=== PATIENT | male | born 1950 | race Caucasian/White ===

== ENCOUNTER 2017-07-04 12:19 | Inpatient (IN) | payer OTHER ==
[~2017-07-04] VITALS: Ht 170.2 cm; Wt 90.5 kg
[2017-07-04] VITALS (16 sets, daily range): BP systolic 90–138; BP diastolic 59–86
[~2017-07-04 12:19] MED LIST: APIX2.5T PO; ASPI-1265 PO; ATOR10TA87 PO; CALC0.253 PO; DILT120C51 PO; LABE100T PO; LIDOcaine 2% (20 mg/ml) 5ml cardiac syringe ONE; MAGNESIUM SULFATE 4 MEQ/ML (1gm/2ml) injection ONE; SEVE800T8 PO; SODI650T29 PO; albumin (human) 25% 100 ML IV solution IV ONE; aminocaproic acid 250 MG/1 ML inj. ONE; calcium chloride 100 MG/1 ML inj IV ONE; heparin 1,000 units/ml 10ml inj ONE; heparin 10,000 units/1 ML INJ ONE; papaverine 30 mg/ml 2ml inj. ONE; phenylephrine 10mg/ml inj IV ONE; potassium Cl 2 mEq/ml inj IV ONE; sodium bicarbonate (8.4%) 1 mEq/ml syringe ONE
[2017-07-04] MEDS ORDERED: MESSAGE TO NURSING PO ONE ×4 (13:20)
[2017-07-04] MEDS: insulin regular, human inj. 100 UNITS in normal saline 100ml IV soln 100 ML IV SCH ×2 (13:20)
[2017-07-04] MEDS ORDERED: vancomycin/NS 1 GM ADD-VANTAGE 250 ML IV ONE (13:20)
[2017-07-04] MEDS ORDERED: dextrose 50%-water 50ml dispensing syringe IV PRN ×2 (13:20→19:40)
[2017-07-04] MEDS ORDERED: cefazolin/dext.iso 2gm/50ml 50 ML IV ONE (13:20)
[2017-07-04] MEDS ORDERED: famotidine/PF 10 mg/ml inj IV ONE (14:10)
[2017-07-04] MEDS ORDERED: LORazepam 2 mg/ml vial IV ONE (14:10)
[2017-07-04 14:12] LABS: HEMATOCRIT 31.9 % (42.0-52.0); HEMOGLOBIN 10.9 g/dl (14.0-17.9); MEAN CORPUSCULAR HEMOGLOBIN 31.3 PG (27.0-31.0); MEAN CORPUSCULAR HGB CONC 34.2 % (33.0-36.5); MEAN CORPUSCULAR VOLUME 91.7 FL (78-98); MEAN PLATELET VOLUME 7.7 FL (7.4-10.4); PLATELET COUNT 207 X10'3 (140-440); RED BLOOD COUNT 3.48 X10'6 (4.70-6.10); RED CELL DISTRIBUTION WIDTH 18.3 % (11.5-14.5); WHITE BLOOD COUNT 15.9 X10'3 (4.5-11.0)
[2017-07-04] MEDS ORDERED: SUFENTANIL CITRATE 50 MCG/ML 2ml ampule IV ONE (14:16)
[2017-07-04] MEDS ORDERED: MIDAZolam 1mg/ml 10ml vial ONE (14:16)
[2017-07-04 14:18] LABS: ALBUMIN 2.6 G/DL (3.4-5.0); ANION GAP 14 (8-16); BLOOD UREA NITROGEN 73 MG/DL (7-18); BUN/CREATININE RATIO 4.4 (5.4-32.0); CALCIUM 8.5 MG/DL (8.5-10.1); CHLORIDE 92 MMOL/L (99-107); CREATININE 16.65 MG/DL (0.60-1.10); GLUCOSE 143 MG/DL (70-104); POTASSIUM 5.2 MMOL/L (3.5-5.1); SODIUM 133 MMOL/L (135-145); eGFR 3 ML/MIN
[2017-07-04 14:19] LABS: PARTIAL THROMBOPLASTIN TIME 32 SECONDS (22-32); PROTHROMBIN TIME 10.5 SECONDS (9.0-12.0)
[2017-07-04] MEDS ORDERED: LIDOcaine 2% (20mg/ml) 5ml vial ONE (14:23)
[2017-07-04] MEDS ORDERED: 0.9 % SODIUM CHLORIDE 10 ML VIAL ONE ×2 (14:23)
[2017-07-04] MEDS ORDERED: phenylephrine 10mg/ml inj IV ONE (14:23)
[2017-07-04] MEDS ORDERED: ePHEDrine 50MG/ML INJ. ONE (14:23)
[2017-07-04] MEDS ORDERED: etomidate 2mg/ml inj. ONE (14:23)
[2017-07-04] MEDS ORDERED: rocuronium 10mg/ml inj IV ONE ×3 (14:24→16:32)
[2017-07-04 14:25] LABS: HEMOGLOBIN A1C 5.8 % (4.5-6.2)
[2017-07-04] MEDS ORDERED: protamine sulf. 10mg/ml inj. IV ONE (15:00)
[2017-07-04] MEDS ORDERED: isoflurane 100ml inhalation liquid IH ONE (15:00)
[2017-07-04 15:01] LABS: ABG BASE EXCESS -2.3 mmol/L (-2.0-3.0); ABG HCO3 21.6 mmol/L (22.0-26.0); ABG OXYGEN SATURATION 91.4 % (95-98); ABG PCO2 (T) 34.1 mmHg (35.0-48.0); ABG PO2 (T) 64.5 mmHg (83-108); ALLEN'S TEST Positive; FCOHb 0.1 % (0.5-1.5); FMetHb 0.3 % (0.3-1.12)
[2017-07-04 16:26] LABS: ABG BASE EXCESS -4.1 mmol/L (-2.0-3.0); ABG OXYGEN SATURATION 99.6 % (95-98); ABG PCO2 32.8 mmHg (35.0-45.0); ABG PH 7.402 (7.350-7.450); ABG PO2 312.4 mmHg (60.0-100.0); CL (ABG) 95 mmol/L (99-107); FCOHb 0.6 % (0.5-1.5); FMetHb 0.1 % (0.3-1.12); FO2Hb 98.9 % (94-100); GLUCOSE (ABG) 130 mg/dl (70-105); IONIZED CA (ABG) 1.01 mmol/L (1.03-1.32); K (ABG) 4.8 mmol/L (3.3-5.1); NA (ABG) 130 mmol/L (135-145); TOTAL HEMOGLOBIN 10.8 G/dl (14.0-18.0)
[2017-07-04] MEDS ORDERED: metoprolol tartrate 1mg/ml inj IV ONE (16:30)
[2017-07-04] MEDS ORDERED: heparin 10,000 units/1 ML INJ IR ONE (16:53)
[2017-07-04] MEDS ORDERED: papaverine 30 mg/ml 2ml inj. IA ONE (16:55)
[2017-07-04] MEDS ORDERED: esmolol inj. 10 ML IV ONE (17:20)
[2017-07-04] MEDS ORDERED: midazolam 2 mg/2 ml injection IV PRN (17:25)
[2017-07-04] MEDS ORDERED: fentaNYL/PF 50MCG/1 ML 2ML syringe IV PRN (17:25)
[2017-07-04 17:31] LABS: ABG BASE EXCESS -3.3 mmol/L (-2.0-3.0); ABG HCO3 20.3 mmol/L (22.0-26.0); ABG OXYGEN SATURATION 99.6 % (95-98); ABG PCO2 30.2 mmHg (35.0-45.0); ABG PH 7.445 (7.350-7.450); ABG PO2 532.6 mmHg (60.0-100.0); CL (ABG) 93 mmol/L (99-107); FCOHb 0.7 % (0.5-1.5); FMetHb 0.4 % (0.3-1.12); FO2Hb 98.5 % (94-100); GLUCOSE (ABG) 126 mg/dl (70-105); IONIZED CA (ABG) 0.92 mmol/L (1.03-1.32); K (ABG) 6.1 mmol/L (3.3-5.1); NA (ABG) 125 mmol/L (135-145); TOTAL HEMOGLOBIN 7.9 G/dl (14.0-18.0)
[2017-07-04 17:55] LABS: ABG BASE EXCESS VENOUS -1.8 mmol/L; ABG HCO3 VENOUS 22.5 mmol/L; ABG PCO2 VENOUS 35.7 mmHg; ABG PO2 VENOUS 45.9 mmHg; CL (ABG) 96 mmol/L (99-107); FCOHb VENOUS 1.1 %; FHHb VENOUS 17.7 %; FMetHb VENOUS 0.4 %; FO2Hb VENOUS 80.8 %; GLUCOSE (ABG) 117 mg/dl (70-105); IONIZED CA (ABG) 0.87 mmol/L (1.03-1.32); K (ABG) 5.9 mmol/L (3.3-5.1); NA (ABG) 128 mmol/L (135-145); TOTAL HEMOGLOBIN 7.6 G/dl (14.0-18.0)
[2017-07-04] MEDS: insulin Lispro (HumaLOG) vial - multi-dose SQ SCH (18:00)
[2017-07-04 18:26] LABS: ABG BASE EXCESS -1.4 mmol/L (-2.0-3.0); ABG HCO3 22.3 mmol/L (22.0-26.0); ABG OXYGEN SATURATION 99.6 % (95-98); ABG PCO2 32.3 mmHg (35.0-45.0); ABG PH 7.456 (7.350-7.450); ABG PO2 390.4 mmHg (60.0-100.0); CL (ABG) 97 mmol/L (99-107); FCOHb 1.1 % (0.5-1.5); FMetHb 0.4 % (0.3-1.12); FO2Hb 98.1 % (94-100); GLUCOSE (ABG) 112 mg/dl (70-105); K (ABG) 5.9 mmol/L (3.3-5.1); NA (ABG) 129 mmol/L (135-145); TOTAL HEMOGLOBIN 7.4 G/dl (14.0-18.0)
[2017-07-04 18:51] LABS: ABG BASE EXCESS -2.4 mmol/L (-2.0-3.0); ABG HCO3 21.2 mmol/L (22.0-26.0); ABG OXYGEN SATURATION 99.6 % (95-98); ABG PCO2 31.1 mmHg (35.0-45.0); ABG PH 7.452 (7.350-7.450); ABG PO2 301.2 mmHg (60.0-100.0); CL (ABG) 100 mmol/L (99-107); FCOHb 1.3 % (0.5-1.5); FMetHb 0.2 % (0.3-1.12); FO2Hb 98.1 % (94-100); GLUCOSE (ABG) 118 mg/dl (70-105); K (ABG) 5.6 mmol/L (3.3-5.1); NA (ABG) 130 mmol/L (135-145); TOTAL HEMOGLOBIN 7.3 G/dl (14.0-18.0)
[2017-07-04 19:12] LABS: HEMOGLOBIN 7.4 g/dl (14.0-17.9); MEAN CORPUSCULAR HEMOGLOBIN 30.9 PG (27.0-31.0); MEAN CORPUSCULAR HGB CONC 33.4 % (33.0-36.5); MEAN CORPUSCULAR VOLUME 92.5 FL (78-98); MEAN PLATELET VOLUME 7.5 FL (7.4-10.4); PLATELET COUNT 126 X10'3 (140-440); RED BLOOD COUNT 2.38 X10'6 (4.70-6.10); RED CELL DISTRIBUTION WIDTH 17.7 % (11.5-14.5); WHITE BLOOD COUNT 20.8 X10'3 (4.5-11.0)
[2017-07-04 19:27] LABS: INR 1.2 INR; PARTIAL THROMBOPLASTIN TIME 28 SECONDS (22-32); PROTHROMBIN TIME 12.5 SECONDS (9.0-12.0)
[2017-07-04] MEDS ORDERED: DOPamine 400mg/D5W 250ml 250 ML IV PRN (19:37)
[2017-07-04] MEDS ORDERED: nitroGLYCERIN-Tridil 50MG/D5W 250 ML IV PRN (19:37)
[2017-07-04] MEDS ORDERED: niCARDipine/sod cl 20mg/200ml 200 ML IV PRN (19:37)
[2017-07-04] MEDS ORDERED: insulin regular, human inj. 100 UNITS in normal saline 100ml IV soln 100 ML IV SCH ×2 (19:40)
[2017-07-04] MEDS ORDERED: normal saline 250ml IV soln 250 ML IV PRN (19:40)
[2017-07-04] MEDS ORDERED: potassium Cl 20mEq/100mL bag 100 ML IV PRN ×3 (19:40)
[2017-07-04] MEDS ORDERED: magnesium 4gm in 100ml NS 100 ML IV PRN (19:40)
[2017-07-04] MEDS ORDERED: morphine 2 MG/ML inj. syringe IV PRN (19:40)
[2017-07-04] MEDS ORDERED: magnesium hydroxide 30ml (MOM) UD suspension PO PRN (19:40)
[2017-07-04] MEDS ORDERED: magnesium 2GM in 50ml NS 50 ML IV PRN (19:40)
[2017-07-04] MEDS ORDERED: sodium phosphate inj. 30 MMOL in dextrose 5%-water 250 ML IV PRN (19:40)
[2017-07-04] MEDS ORDERED: sodium phosphate inj. 15 MMOL in dextrose 5%-water 150 ML IV PRN (19:40)
[2017-07-04] MEDS ORDERED: metoclopramide 5 mg/ml inj IV PRN (19:40)
[2017-07-04] MEDS ORDERED: Neutra Phos packet PO PRN (19:40)
[2017-07-04] MEDS: sodium bicarbonate 650mg tablet PO SCH (20:00)
[2017-07-04] MEDS ORDERED: mupirocin 2% ointment 22GM NS SCH (20:00)
[2017-07-04] MEDS: docusate sod 100mg capsule PO SCH (20:00)
[2017-07-04] MEDS: vancomycin/NS 1 GM ADD-VANTAGE 250 ML IV SCH (20:00)
[2017-07-04 20:20] LABS: ABG BASE EXCESS -6.3 mmol/L (-2.0-3.0); ABG HCO3 17.4 mmol/L (22.0-26.0); ABG PCO2 (T) 28.4 mmHg (35.0-48.0); ABG PH (T) 7.404 (7.350-7.450); ABG PO2 (T) 250.9 mmHg (83-108); FCOHb 0.3 % (0.5-1.5); FO2Hb 98.7 % (94-100); MINUTE VOLUME 8 L/min; PATIENT TEMPERATURE 36.5; PEEP 5 cm H2O; RESPIRATORY RATE 12 b/min; RESPIRATORY RATE (OBSERVED) 12 b/min; TIDAL VOLUME 600 mL; TOTAL HEMOGLOBIN 10.8 G/dl (14.0-18.0)
[2017-07-04 20:27] LABS: BASOPHILS % (AUTO) 0 % (0-1); EOSINOPHILS % (AUTO) 0 % (0-6); HEMATOCRIT 31.5 % (42.0-52.0); HEMOGLOBIN 10.4 g/dl (14.0-17.9); LYMPHOCYTES # (AUTO) 0.3 X10'3 (1.1-4.8); LYMPHOCYTES % (AUTO) 1.2 % (21-51); MEAN CORPUSCULAR HEMOGLOBIN 30.9 PG (27.0-31.0); MEAN CORPUSCULAR VOLUME 93.5 FL (78-98); MEAN PLATELET VOLUME 7.8 FL (7.4-10.4); MONOCYTES # (AUTO) 0.9 X10'3 (0-0.9); MONOCYTES % (AUTO) 3.1 % (2-12); NEUTROPHILS # (AUTO) 27.2 X10'3 (1.8-7.7); NEUTROPHILS % (AUTO) 95.7 % (42-75); PLATELET COUNT 132 X10'3 (140-440); RED BLOOD COUNT 3.36 X10'6 (4.70-6.10); RED CELL DISTRIBUTION WIDTH 18.2 % (11.5-14.5)
[2017-07-04 20:46] LABS: WHITE BLOOD COUNT 28.5 X10'3 (4.5-11.0)
[2017-07-04] MEDS: sodium chloride 0.45% 1,000 ML IV SCH (21:02)
[2017-07-04] MEDS: morphine 2 MG/ML inj. syringe IV PRN (21:10)
[2017-07-04] MEDS ORDERED: NORepinephrine 8mg/ 250ml NS 250 ML IV PRN (21:56)
[2017-07-04] MEDS: albumin (Human) 5% 250ml 250 ML IV PRN (22:21)
[2017-07-04] MEDS: mupirocin 2% ointment 22GM NS SCH (22:30)
[2017-07-04 22:35] LABS: INR 1.1 INR; PARTIAL THROMBOPLASTIN TIME 43 SECONDS (22-32); PROTHROMBIN TIME 11.4 SECONDS (9.0-12.0)
[2017-07-04 22:38] LABS: ALANINE AMINOTRANSFERASE 30 U/L (12-78); ALBUMIN 2.2 G/DL (3.4-5.0); ALBUMIN/GLOBULIN RATIO 0.7 (1.1-1.5); ALKALINE PHOSPHATASE 65 IU/L (46-116); ANION GAP 17 (8-16); BILIRUBIN,TOTAL 0.8 MG/DL (0.1-1.0); BLOOD UREA NITROGEN 67 MG/DL (7-18); BUN/CREATININE RATIO 4.6 (5.4-32.0); CHLORIDE 99 MMOL/L (99-107); CREATININE 14.49 MG/DL (0.60-1.10); GLUCOSE 162 MG/DL (70-104); MAGNESIUM 3.4 MG/DL (1.5-2.4); SODIUM 136 MMOL/L (135-145); TOTAL PROTEIN 5.5 G/DL (6.4-8.2); eGFR 3 ML/MIN
[2017-07-04 22:40] LABS: POTASSIUM 5.9 MMOL/L (3.5-5.1)
[2017-07-04 22:54] LABS: PHOSPHORUS 7.2 MG/DL (2.3-4.5)
[2017-07-04 22:55] LABS: ASPARTATE AMINO TRANSFERASE 209 U/L (10-37)
[2017-07-04 23:17] LABS: ANISOCYTOSIS 2+; PLATELET ESTIMATE DECREASED; TOTAL CELLS COUNTED 100
[2017-07-05] VITALS (24 sets, daily range): BP systolic 82–136; BP diastolic 56–82
[2017-07-05] MEDS: cefazolin 1gm/NS 100mL 100 ML IV SCH ×4 (00:24→21:07)
[2017-07-05] MEDS: albumin (Human) 5% 250ml 250 ML IV PRN (00:25)
[2017-07-05 03:05] LABS: ABG HCO3 18.3 mmol/L (22.0-26.0); ABG OXYGEN SATURATION 96.3 % (95-98); ABG PCO2 (T) 39.9 mmHg (35.0-48.0); ABG PH (T) 7.277 (7.350-7.450); ABG PO2 (T) 102.7 mmHg (83-108); FCOHb 0.3 % (0.5-1.5); FMetHb 0.3 % (0.3-1.12); FO2Hb 95.7 % (94-100); MINUTE VOLUME 7 L/min; PATIENT TEMPERATURE 36.7; PEEP 5 cm H2O; RESPIRATORY RATE (OBSERVED) 14 b/min; TOTAL HEMOGLOBIN 9.9 G/dl (14.0-18.0)
[2017-07-05 03:39] LABS: BASOPHILS % (AUTO) 0 % (0-1); EOSINOPHILS # (AUTO) 0.4 X10'3 (0-0.9); HEMATOCRIT 27.3 % (42.0-52.0); HEMOGLOBIN 9.2 g/dl (14.0-17.9); LYMPHOCYTES # (AUTO) 0.3 X10'3 (1.1-4.8); LYMPHOCYTES % (AUTO) 1.3 % (21-51); MEAN CORPUSCULAR HGB CONC 33.6 % (33.0-36.5); MEAN CORPUSCULAR VOLUME 92.3 FL (78-98); MEAN PLATELET VOLUME 8.1 FL (7.4-10.4); MONOCYTES # (AUTO) 0.3 X10'3 (0-0.9); MONOCYTES % (AUTO) 1.3 % (2-12); NEUTROPHILS # (AUTO) 19.1 X10'3 (1.8-7.7); NEUTROPHILS % (AUTO) 95.4 % (42-75); PLATELET COUNT 145 X10'3 (140-440); RED BLOOD COUNT 2.95 X10'6 (4.70-6.10)
[2017-07-05 03:51] LABS: INR 1.1 INR; PARTIAL THROMBOPLASTIN TIME 28 SECONDS (22-32); PROTHROMBIN TIME 10.9 SECONDS (9.0-12.0)
[2017-07-05 03:55] LABS: ALANINE AMINOTRANSFERASE 23 U/L (12-78); ALBUMIN 2.8 G/DL (3.4-5.0); ALKALINE PHOSPHATASE 55 IU/L (46-116); ANION GAP 21 (8-16); ASPARTATE AMINO TRANSFERASE 167 U/L (10-37); BILIRUBIN,TOTAL 0.6 MG/DL (0.1-1.0); BLOOD UREA NITROGEN 73 MG/DL (7-18); BUN/CREATININE RATIO 4.7 (5.4-32.0); CALCIUM 8.1 MG/DL (8.5-10.1); CHLORIDE 98 MMOL/L (99-107); CREATININE 15.39 MG/DL (0.60-1.10); GLUCOSE 178 MG/DL (70-104); MAGNESIUM 3.5 MG/DL (1.5-2.4); PHOSPHORUS 8.4 MG/DL (2.3-4.5); SODIUM 138 MMOL/L (135-145); TOTAL CARBON DIOXIDE 19.5 MMOL/L (24-32); TOTAL PROTEIN 5.6 G/DL (6.4-8.2); eGFR 3 ML/MIN
[2017-07-05] MEDS ORDERED: insulin regular, human 10 units/0.1 ml syringe IV ONE (05:25)
[2017-07-05] MEDS ORDERED: dextrose 50%-water 50ml dispensing syringe IV ONE (05:25)
[2017-07-05] MEDS: morphine 2 MG/ML inj. syringe IV PRN ×2 (05:45→19:21)
[2017-07-05 07:10] LABS: ABG BASE EXCESS -9.7 mmol/L (-2.0-3.0); ABG HCO3 15.5 mmol/L (22.0-26.0); ABG OXYGEN SATURATION 96.7 % (95-98); ABG PCO2 (T) 30.9 mmHg (35.0-48.0); ABG PH (T) 7.317 (7.350-7.450); ABG PO2 (T) 107.2 mmHg (83-108); FCOHb 0.3 % (0.5-1.5); FMetHb 0.3 % (0.3-1.12); FO2Hb 96.1 % (94-100); MINUTE VOLUME 9 L/min; PATIENT TEMPERATURE 36.9; PEEP 5 cm H2O; TOTAL HEMOGLOBIN 9.2 G/dl (14.0-18.0)
[2017-07-05] MEDS ORDERED: normal saline 1000ml 100 ML IV PRN (07:14)
[2017-07-05] MEDS ORDERED: normal saline 1000ml 250 ML IV PRN (07:14)
[2017-07-05] MEDS ORDERED: albumin (human) 25% 100ml IV 100 ML IV PRN (07:15)
[2017-07-05] MEDS ORDERED: heparin 1,000 units/ml 10ml inj HE ONE ×2 (07:20)
[2017-07-05] MEDS: insulin regular, human inj. 100 UNITS in normal saline 100ml IV soln 100 ML IV SCH ×6 (07:32→14:05)
[2017-07-05] MEDS: sevelamer carbonate 800mg tablet PO SCH ×3 (08:00→19:54)
[2017-07-05] MEDS: metoprolol tartrate 12.5mg (1/2 tablet) PO SCH ×2 (08:00→20:15)
[2017-07-05] MEDS ORDERED: insulin Lispro (HumaLOG) vial - multi-dose SQ SCH ×2 (09:00→19:50)
[2017-07-05] MEDS: insulin Lispro (HumaLOG) vial - multi-dose SQ SCH ×3 (09:00→18:00)
[2017-07-05] MEDS ORDERED: hydrocortisone sod succ/PF 100mg/2ml inj. IV ONE (09:05)
[2017-07-05] MEDS: vancomycin/NS 1 GM ADD-VANTAGE 250 ML IV SCH ×2 (09:20→21:18)
[2017-07-05] MEDS: aspirin 325mg tablet, delayed-release (Ecotrin) PO SCH (09:20)
[2017-07-05] MEDS: docusate sod 100mg capsule PO SCH ×2 (09:20→20:15)
[2017-07-05] MEDS: mupirocin 2% ointment 22GM NS SCH ×2 (09:21→20:15)
[2017-07-05] MEDS: atorvastatin 10mg tablet PO SCH (09:21)
[2017-07-05] MEDS: sodium bicarbonate 650mg tablet PO SCH ×2 (09:21→20:30)
[2017-07-05] MEDS: calcitriol 0.25mcg capsule PO SCH (09:21)
[2017-07-05] MEDS: pantoprazole 40mg Tablet.DR PO SCH (09:23)
[2017-07-05] MEDS ORDERED: MESSAGE TO NURSING PO ONE (10:00)
[2017-07-05] MEDS: sodium chloride 0.45% 1,000 ML IV SCH (15:24)
[2017-07-05] MEDS ORDERED: amiodarone 150mg/dext, iso-os 100 ML IV ONE ×2 (17:20→17:24)
[2017-07-05] MEDS ORDERED: amiodarone/D5 360MG/200ML BAG 200 ML IV ONE (17:25)
[2017-07-05] MEDS ORDERED: glucagon, human recombinant 1mg kit SUBCUT PRN (19:50)
[2017-07-05] MEDS: mineral oil/petrolatum ophthal oint EACHEYE SCH (20:00)
[2017-07-05] MEDS: HYDROcodone/acetaminophen 10/325mg tab PO PRN (22:43)
[2017-07-05] MEDS: insulin glargine (Lantus) pen - multi-dose SQ SCH (22:46)
[2017-07-05] MEDS: ondansetron/PF 4mg/2ml inj IV PRN (23:13)
[2017-07-05] MEDS: amiodarone/D5 360MG/200ML BAG 200 ML IV SCH (23:36)
[2017-07-06] VITALS (25 sets, daily range): BP systolic 93–144; BP diastolic 62–86
[2017-07-06] MEDS: sevelamer carbonate 800mg tablet PO SCH
[2017-07-06] MEDS: cefazolin 1gm/NS 100mL 100 ML IV SCH ×2 (00:32→08:27)
[2017-07-06] MEDS: mineral oil/petrolatum ophthal oint EACHEYE SCH ×4 (02:00→20:00)
[2017-07-06 03:36] LABS: BASOPHILS % (AUTO) 0 % (0-1); EOSINOPHILS # (AUTO) 0.1 X10'3 (0-0.9); EOSINOPHILS % (AUTO) 0.7 % (0-6); LYMPHOCYTES # (AUTO) 0.5 X10'3 (1.1-4.8); LYMPHOCYTES % (AUTO) 2.7 % (21-51); MEAN CORPUSCULAR VOLUME 93.9 FL (78-98); MONOCYTES # (AUTO) 0.8 X10'3 (0-0.9); MONOCYTES % (AUTO) 4.5 % (2-12); NEUTROPHILS # (AUTO) 16.9 X10'3 (1.8-7.7); NEUTROPHILS % (AUTO) 92.1 % (42-75); PLATELET COUNT 86 X10'3 (140-440); RED BLOOD COUNT 2.14 X10'6 (4.70-6.10); RED CELL DISTRIBUTION WIDTH 18.7 % (11.5-14.5); WHITE BLOOD COUNT 18.3 X10'3 (4.5-11.0)
[2017-07-06 04:03] LABS: ALBUMIN 2.5 G/DL (3.4-5.0); ANION GAP 16 (8-16); BLOOD UREA NITROGEN 53 MG/DL (7-18); BUN/CREATININE RATIO 5.3 (5.4-32.0); CALCIUM 7.3 MG/DL (8.5-10.1); CHLORIDE 98 MMOL/L (99-107); CREATININE 10.06 MG/DL (0.60-1.10); GLUCOSE 151 MG/DL (70-104); MAGNESIUM 2.5 MG/DL (1.5-2.4); PHOSPHORUS 6.6 MG/DL (2.3-4.5); POTASSIUM 5.2 MMOL/L (3.5-5.1); SODIUM 136 MMOL/L (135-145); TOTAL CARBON DIOXIDE 22.2 MMOL/L (24-32); eGFR 5 ML/MIN
[2017-07-06 04:30] LABS: HEMATOCRIT 20.1 % (42.0-52.0); HEMOGLOBIN 6.7 g/dl (14.0-17.9)
[2017-07-06 06:01] LABS: BASOPHILS % (AUTO) 0 % (0-1); EOSINOPHILS # (AUTO) 0.4 X10'3 (0-0.9); EOSINOPHILS % (AUTO) 1.7 % (0-6); HEMOGLOBIN 7.2 g/dl (14.0-17.9); LYMPHOCYTES # (AUTO) 0.4 X10'3 (1.1-4.8); MEAN CORPUSCULAR HEMOGLOBIN 31.3 PG (27.0-31.0); MEAN CORPUSCULAR HGB CONC 33.5 % (33.0-36.5); MEAN CORPUSCULAR VOLUME 93.5 FL (78-98); MEAN PLATELET VOLUME 8.6 FL (7.4-10.4); MONOCYTES # (AUTO) 0.8 X10'3 (0-0.9); MONOCYTES % (AUTO) 3.4 % (2-12); NEUTROPHILS # (AUTO) 20.9 X10'3 (1.8-7.7); NEUTROPHILS % (AUTO) 92.9 % (42-75); PLATELET COUNT 111 X10'3 (140-440); RED BLOOD COUNT 2.29 X10'6 (4.70-6.10); RED CELL DISTRIBUTION WIDTH 18.5 % (11.5-14.5); WHITE BLOOD COUNT 22.5 X10'3 (4.5-11.0)
[2017-07-06 06:13] LABS: HEMATOCRIT 21.4 % (42.0-52.0)
[2017-07-06 07:20] LABS: ANISOCYTOSIS 2+; PLATELET ESTIMATE DECREASED
[2017-07-06 07:21] LABS: ELLIPTOCYTES FEW; POIKILOCYTOSIS FEW; POLYCHROMASIA FEW
[2017-07-06] MEDS: calcitriol 0.25mcg capsule PO SCH (08:00)
[2017-07-06] MEDS: metoprolol tartrate 12.5mg (1/2 tablet) PO SCH ×2 (08:00→20:00)
[2017-07-06] MEDS: amiodarone/D5 360MG/200ML BAG 200 ML IV SCH ×3 (08:25→23:59)
[2017-07-06] MEDS: aspirin 325mg tablet, delayed-release (Ecotrin) PO SCH (08:26)
[2017-07-06] MEDS: docusate sod 100mg capsule PO SCH ×2 (08:26→20:16)
[2017-07-06] MEDS: atorvastatin 10mg tablet PO SCH (08:26)
[2017-07-06] MEDS: pantoprazole 40mg Tablet.DR PO SCH (08:27)
[2017-07-06] MEDS: mupirocin 2% ointment 22GM NS SCH (08:28)
[2017-07-06] MEDS: insulin Lispro (HumaLOG) vial - multi-dose SQ SCH ×3 (08:53→18:55)
[2017-07-06] MEDS: HYDROcodone/acetaminophen 10/325mg tab PO PRN ×3 (10:23→21:09)
[2017-07-06] MEDS: calcium acetate 667mg (PhosLO) capsule PO SCH ×3 (13:00→18:27)
[2017-07-06] MEDS: sodium chloride 0.45% 1,000 ML IV SCH (19:37)
[2017-07-06] MEDS: insulin glargine (Lantus) pen - multi-dose SQ SCH (21:07)
[2017-07-07] VITALS (23 sets, daily range): BP systolic 82–143; BP diastolic 64–90
[2017-07-07] MEDS: HYDROcodone/acetaminophen 10/325mg tab PO PRN ×2 (01:32→13:00)
[2017-07-07 03:14] LABS: BASOPHILS % (AUTO) 0 % (0-1); EOSINOPHILS # (AUTO) 0.4 X10'3 (0-0.9); EOSINOPHILS % (AUTO) 1.9 % (0-6); HEMATOCRIT 22.7 % (42.0-52.0); HEMOGLOBIN 7.7 g/dl (14.0-17.9); LYMPHOCYTES # (AUTO) 0.5 X10'3 (1.1-4.8); LYMPHOCYTES % (AUTO) 2.4 % (21-51); MEAN CORPUSCULAR HEMOGLOBIN 30.9 PG (27.0-31.0); MEAN CORPUSCULAR HGB CONC 33.9 % (33.0-36.5); MEAN CORPUSCULAR VOLUME 91.3 FL (78-98); MEAN PLATELET VOLUME 9.3 FL (7.4-10.4); MONOCYTES # (AUTO) 0.8 X10'3 (0-0.9); MONOCYTES % (AUTO) 3.7 % (2-12); NEUTROPHILS # (AUTO) 20.6 X10'3 (1.8-7.7); PLATELET COUNT 104 X10'3 (140-440); RED BLOOD COUNT 2.48 X10'6 (4.70-6.10); RED CELL DISTRIBUTION WIDTH 19.2 % (11.5-14.5); WHITE BLOOD COUNT 22.4 X10'3 (4.5-11.0)
[2017-07-07 03:36] LABS: ALBUMIN 2.5 G/DL (3.4-5.0); ANION GAP 16 (8-16); BLOOD UREA NITROGEN 79 MG/DL (7-18); BUN/CREATININE RATIO 6.7 (5.4-32.0); CALCIUM 7.8 MG/DL (8.5-10.1); CHLORIDE 93 MMOL/L (99-107); CREATININE 11.76 MG/DL (0.60-1.10); GLUCOSE 156 MG/DL (70-104); MAGNESIUM 2.7 MG/DL (1.5-2.4); PHOSPHORUS 8.9 MG/DL (2.3-4.5); POTASSIUM 5.7 MMOL/L (3.5-5.1); SODIUM 132 MMOL/L (135-145); TOTAL CARBON DIOXIDE 22.7 MMOL/L (24-32); eGFR 4 ML/MIN
[2017-07-07] MEDS: calcium acetate 667mg (PhosLO) capsule PO SCH ×3 (08:00→18:34)
[2017-07-07] MEDS: aspirin 325mg tablet, delayed-release (Ecotrin) PO SCH (08:00)
[2017-07-07] MEDS: metoprolol tartrate 12.5mg (1/2 tablet) PO SCH ×2 (08:00→20:00)
[2017-07-07] MEDS ORDERED: epoetin 20,000 units/ml inj IV ONE (08:00)
[2017-07-07] MEDS ORDERED: heparin 1,000 units/ml 10ml inj HE ONE ×2 (08:00)
[2017-07-07] MEDS ORDERED: heparin 1,000unit/ml 10ml vial 10 ML IV ONE (08:00)
[2017-07-07] MEDS ORDERED: normal saline 1000ml 250 ML IV PRN (08:00)
[2017-07-07] MEDS ORDERED: amiodarone 200mg tablet PO SCH (08:00)
[2017-07-07] MEDS: pantoprazole 40mg Tablet.DR PO SCH (08:01)
[2017-07-07] MEDS: atorvastatin 10mg tablet PO SCH (08:01)
[2017-07-07] MEDS: docusate sod 100mg capsule PO SCH ×2 (08:01→20:20)
[2017-07-07] MEDS: calcitriol 0.25mcg capsule PO SCH (08:05)
[2017-07-07] MEDS: insulin Lispro (HumaLOG) vial - multi-dose SQ SCH ×3 (08:53→19:27)
[2017-07-07 10:21] LABS: ACTIVATED CLOTTING TIME 157 SEC (101-148)
[2017-07-07 10:21] LABS: ACT @ 1.70 U 232 SEC (193-297); ACT @ 2.84 U 320 SEC (260-420); BASELINE ACT 168 SEC (101-148); PATIENT WEIGHT 94.0k KG
[2017-07-07] MEDS: Protein Shake (high protein) 240ml (8oz) cup PO SCH ×2 (13:00→18:34)
[2017-07-07] MEDS ORDERED: potassium Cl 20 mEq SR tablet PO PRN ×2 (13:20)
[2017-07-07] MEDS ORDERED: magnesium Cl slow-release 64mg tablet PO PRN (13:20)
[2017-07-07] MEDS ORDERED: magnesium 4gm in 100ml NS 100 ML IV PRN (13:20)
[2017-07-07] MEDS ORDERED: magnesium 2GM in 50ml NS 50 ML IV PRN (13:20)
[2017-07-07] MEDS ORDERED: potassium Cl 40MEQ/NS 500ml 500 ML IV PRN ×2 (13:20)
[2017-07-07 14:10] LABS: ALANINE AMINOTRANSFERASE 12 U/L (12-78); ALBUMIN 2.6 G/DL (3.4-5.0); ALBUMIN/GLOBULIN RATIO 0.8 (1.1-1.5); ALKALINE PHOSPHATASE 72 IU/L (46-116); ANION GAP 8 (8-16); ASPARTATE AMINO TRANSFERASE 38 U/L (10-37); BILIRUBIN,TOTAL 0.3 MG/DL (0.1-1.0); BLOOD UREA NITROGEN 31 MG/DL (7-18); BUN/CREATININE RATIO 6.5 (5.4-32.0); CALCIUM 7.4 MG/DL (8.5-10.1); CHLORIDE 98 MMOL/L (99-107); CREATININE 4.76 MG/DL (0.60-1.10); GLUCOSE 111 MG/DL (70-104); MAGNESIUM 2.1 MG/DL (1.5-2.4); PHOSPHORUS 3.5 MG/DL (2.3-4.5); POTASSIUM 3.5 MMOL/L (3.5-5.1); SODIUM 136 MMOL/L (135-145); TOTAL CARBON DIOXIDE 29.6 MMOL/L (24-32); TOTAL PROTEIN 5.8 G/DL (6.4-8.2); eGFR 12 ML/MIN
[2017-07-07] MEDS ORDERED: amiodarone 150mg/dext, iso-os 0 ML IV ONE (16:40)
[2017-07-07] MEDS ORDERED: amiodarone/D5 360MG/200ML BAG 200 ML IV ONE (16:40)
[2017-07-07] MEDS: amiodarone/D5 360MG/200ML BAG 200 ML IV SCH ×2 (16:43→22:43)
[2017-07-07] MEDS: potassium Cl 20 mEq SR tablet PO SCH (20:20)
[2017-07-07] MEDS: magnesium Cl slow-release 64mg tablet PO SCH (20:21)
[2017-07-07] MEDS: insulin glargine (Lantus) pen - multi-dose SQ SCH (21:23)
[2017-07-08] VITALS (24 sets, daily range): BP systolic 75–117; BP diastolic 57–82
[2017-07-08] MEDS: amiodarone/D5 360MG/200ML BAG 200 ML IV SCH ×4 (04:06→21:15)
[2017-07-08 06:47] LABS: ALBUMIN 2.3 G/DL (3.4-5.0); ANION GAP 18 (8-16); BLOOD UREA NITROGEN 60 MG/DL (7-18); BUN/CREATININE RATIO 7.1 (5.4-32.0); CALCIUM 7.6 MG/DL (8.5-10.1); CHLORIDE 94 MMOL/L (99-107); GLUCOSE 102 MG/DL (70-104); MAGNESIUM 2.4 MG/DL (1.5-2.4); POTASSIUM 5.3 MMOL/L (3.5-5.1); SODIUM 133 MMOL/L (135-145); TOTAL CARBON DIOXIDE 20.8 MMOL/L (24-32); eGFR 6 ML/MIN
[2017-07-08] MEDS ORDERED: CINA30TA2 (07:11)
[2017-07-08 07:26] LABS: BASOPHILS % (AUTO) 0 % (0-1); EOSINOPHILS # (AUTO) 0.4 X10'3 (0-0.9); EOSINOPHILS % (AUTO) 2.4 % (0-6); HEMATOCRIT 26.3 % (42.0-52.0); HEMOGLOBIN 8.7 g/dl (14.0-17.9); LYMPHOCYTES # (AUTO) 1.4 X10'3 (1.1-4.8); LYMPHOCYTES % (AUTO) 8.2 % (21-51); MEAN CORPUSCULAR HEMOGLOBIN 30.5 PG (27.0-31.0); MEAN CORPUSCULAR VOLUME 92.6 FL (78-98); MEAN PLATELET VOLUME 10.1 FL (7.4-10.4); MONOCYTES # (AUTO) 1.2 X10'3 (0-0.9); MONOCYTES % (AUTO) 7.3 % (2-12); NEUTROPHILS # (AUTO) 13.9 X10'3 (1.8-7.7); NEUTROPHILS % (AUTO) 82.1 % (42-75); PLATELET COUNT 93 X10'3 (140-440); RED BLOOD COUNT 2.84 X10'6 (4.70-6.10); RED CELL DISTRIBUTION WIDTH 18.8 % (11.5-14.5)
[2017-07-08] MEDS: potassium Cl 20 mEq SR tablet PO SCH ×2 (08:00→19:50)
[2017-07-08] MEDS: K and/or MAG REPLACEMENT MC SCH (08:00)
[2017-07-08] MEDS: metoprolol tartrate 12.5mg (1/2 tablet) PO SCH ×2 (08:00→19:50)
[2017-07-08] MEDS: magnesium Cl slow-release 64mg tablet PO SCH ×2 (08:18→19:51)
[2017-07-08] MEDS: calcitriol 0.25mcg capsule PO SCH (08:18)
[2017-07-08] MEDS: aspirin 325mg tablet, delayed-release (Ecotrin) PO SCH (08:18)
[2017-07-08] MEDS: pantoprazole 40mg Tablet.DR PO SCH (08:18)
[2017-07-08] MEDS: docusate sod 100mg capsule PO SCH ×2 (08:19→20:00)
[2017-07-08] MEDS: atorvastatin 10mg tablet PO SCH (08:19)
[2017-07-08] MEDS: calcium acetate 667mg (PhosLO) capsule PO SCH ×3 (08:19→18:04)
[2017-07-08] MEDS: Protein Shake (high protein) 240ml (8oz) cup PO SCH ×3 (08:19→18:04)
[2017-07-08] MEDS: insulin Lispro (HumaLOG) vial - multi-dose SQ SCH ×3 (08:26→18:52)
[2017-07-08] MEDS ORDERED: DEXT IP PRN (16:20)
[2017-07-08] MEDS ORDERED: PERIT DIALYSIS IP PRN (16:20)
[2017-07-08] MEDS: insulin glargine (Lantus) pen - multi-dose SQ SCH (21:00)
[2017-07-09] VITALS (24 sets, daily range): BP systolic 97–154; BP diastolic 58–92
[2017-07-09] MEDS: amiodarone/D5 360MG/200ML BAG 200 ML IV SCH ×2 (02:17→08:02)
[2017-07-09] MEDS: HYDROcodone/acetaminophen 10/325mg tab PO PRN ×2 (05:19→20:28)
[2017-07-09 05:29] LABS: BASOPHILS # (AUTO) 0.1 X10'3 (0-0.2); BASOPHILS % (AUTO) 0.4 % (0-1); EOSINOPHILS # (AUTO) 0.5 X10'3 (0-0.9); EOSINOPHILS % (AUTO) 3.6 % (0-6); HEMATOCRIT 24.8 % (42.0-52.0); HEMOGLOBIN 8.5 g/dl (14.0-17.9); LYMPHOCYTES % (AUTO) 7.4 % (21-51); MEAN CORPUSCULAR HEMOGLOBIN 30.9 PG (27.0-31.0); MEAN CORPUSCULAR HGB CONC 34.3 % (33.0-36.5); MEAN CORPUSCULAR VOLUME 90.2 FL (78-98); MEAN PLATELET VOLUME 9.4 FL (7.4-10.4); MONOCYTES % (AUTO) 6.8 % (2-12); NEUTROPHILS # (AUTO) 11.4 X10'3 (1.8-7.7); NEUTROPHILS % (AUTO) 81.8 % (42-75); PLATELET COUNT 127 X10'3 (140-440); RED BLOOD COUNT 2.75 X10'6 (4.70-6.10); RED CELL DISTRIBUTION WIDTH 18.7 % (11.5-14.5)
[2017-07-09 05:55] LABS: ANION GAP 10 (8-16); BLOOD UREA NITROGEN 71 MG/DL (7-18); BUN/CREATININE RATIO 7.4 (5.4-32.0); CALCIUM 8.4 MG/DL (8.5-10.1); CHLORIDE 94 MMOL/L (99-107); CREATININE 9.55 MG/DL (0.60-1.10); GLUCOSE 118 MG/DL (70-104); MAGNESIUM 2.9 MG/DL (1.5-2.4); SODIUM 130 MMOL/L (135-145); TOTAL CARBON DIOXIDE 26.1 MMOL/L (24-32); eGFR 6 ML/MIN
[2017-07-09] MEDS: K and/or MAG REPLACEMENT MC SCH (06:50)
[2017-07-09] MEDS: pantoprazole 40mg Tablet.DR PO SCH (07:57)
[2017-07-09] MEDS: atorvastatin 10mg tablet PO SCH (07:57)
[2017-07-09] MEDS: aspirin 325mg tablet, delayed-release (Ecotrin) PO SCH (07:57)
[2017-07-09] MEDS: calcium acetate 667mg (PhosLO) capsule PO SCH ×3 (07:57→18:33)
[2017-07-09] MEDS: Protein Shake (high protein) 240ml (8oz) cup PO SCH ×3 (07:57→18:33)
[2017-07-09] MEDS: calcitriol 0.25mcg capsule PO SCH (07:57)
[2017-07-09] MEDS: docusate sod 100mg capsule PO SCH ×2 (07:57→20:29)
[2017-07-09] MEDS: metoprolol tartrate 12.5mg (1/2 tablet) PO SCH ×2 (07:59→20:28)
[2017-07-09] MEDS: magnesium Cl slow-release 64mg tablet PO SCH ×2 (08:00→18:50)
[2017-07-09] MEDS: potassium Cl 20 mEq SR tablet PO SCH ×2 (08:00→18:35)
[2017-07-09] MEDS: ondansetron/PF 4mg/2ml inj IV PRN (08:01)
[2017-07-09] MEDS ORDERED: epoetin 20,000 units/ml inj IV ONE (08:40)
[2017-07-09] MEDS ORDERED: normal saline 1000ml 250 ML IV PRN (08:40)
[2017-07-09] MEDS ORDERED: heparin 1,000 units/ml 10ml inj HE ONE ×2 (08:45)
[2017-07-09] MEDS: insulin Lispro (HumaLOG) vial - multi-dose SQ SCH ×3 (09:00→18:00)
[2017-07-09] MEDS ORDERED: amiodarone 200mg tablet PO ONE (09:30)
[2017-07-09] MEDS ORDERED: PERIT DIALYSIS IP PRN ×2 (11:55→12:14)
[2017-07-09] MEDS ORDERED: perit dialysis 13 & dext 2.5% 6,000 ML IP PRN (11:55)
[2017-07-09] MEDS ORDERED: DEXT IP PRN ×2 (11:55→12:14)
[2017-07-09] MEDS ORDERED: heparin 1,000unit/ml 10ml vial 5,000 UNITS in perit. dialysis 7 & dext 2.5% 6,000 ML IP PRN (12:14)
[2017-07-09] MEDS ORDERED: HEPARIN IP PRN (12:14)
[2017-07-09] MEDS: insulin glargine (Lantus) pen - multi-dose SQ SCH (18:50)
[2017-07-09] MEDS ORDERED: amiodarone 200mg tablet PO SCH (20:00)
[2017-07-10] VITALS (19 sets, daily range): BP systolic 96–144; BP diastolic 55–89
[2017-07-10 05:53] LABS: BASOPHILS % (AUTO) 0 % (0-1); EOSINOPHILS # (AUTO) 0.6 X10'3 (0-0.9); EOSINOPHILS % (AUTO) 4.1 % (0-6); HEMATOCRIT 25.9 % (42.0-52.0); HEMOGLOBIN 8.6 g/dl (14.0-17.9); LYMPHOCYTES # (AUTO) 0.8 X10'3 (1.1-4.8); LYMPHOCYTES % (AUTO) 5.6 % (21-51); MEAN CORPUSCULAR HEMOGLOBIN 30.6 PG (27.0-31.0); MEAN CORPUSCULAR HGB CONC 33.3 % (33.0-36.5); MEAN CORPUSCULAR VOLUME 91.8 FL (78-98); MEAN PLATELET VOLUME 9.1 FL (7.4-10.4); MONOCYTES # (AUTO) 1.1 X10'3 (0-0.9); MONOCYTES % (AUTO) 7.9 % (2-12); NEUTROPHILS # (AUTO) 11.8 X10'3 (1.8-7.7); NEUTROPHILS % (AUTO) 82.4 % (42-75); PLATELET COUNT 176 X10'3 (140-440); RED BLOOD COUNT 2.82 X10'6 (4.70-6.10); RED CELL DISTRIBUTION WIDTH 18.2 % (11.5-14.5); WHITE BLOOD COUNT 14.3 X10'3 (4.5-11.0)
[2017-07-10 06:13] LABS: ALANINE AMINOTRANSFERASE 7 U/L (12-78); ALBUMIN 1.9 G/DL (3.4-5.0); ALBUMIN/GLOBULIN RATIO 0.5 (1.1-1.5); ALKALINE PHOSPHATASE 141 IU/L (46-116); ANION GAP 11 (8-16); ASPARTATE AMINO TRANSFERASE 37 U/L (10-37); BILIRUBIN,TOTAL 0.3 MG/DL (0.1-1.0); BLOOD UREA NITROGEN 74 MG/DL (7-18); BUN/CREATININE RATIO 7.6 (5.4-32.0); CALCIUM 8.6 MG/DL (8.5-10.1); CHLORIDE 93 MMOL/L (99-107); CREATININE 9.72 MG/DL (0.60-1.10); GLUCOSE 131 MG/DL (70-104); PHOSPHORUS 5.7 MG/DL (2.3-4.5); POTASSIUM 5.9 MMOL/L (3.5-5.1); SODIUM 130 MMOL/L (135-145); TOTAL CARBON DIOXIDE 26.1 MMOL/L (24-32); TOTAL PROTEIN 5.5 G/DL (6.4-8.2); eGFR 5 ML/MIN
[2017-07-10 07:43] LABS: MAGNESIUM 2.9 MG/DL (1.5-2.4)
[2017-07-10] MEDS ORDERED: amiodarone 150mg/dext, iso-os 100 ML IV ONE (08:15)
[2017-07-10] MEDS ORDERED: potassium Cl 40MEQ/NS 500ml 500 ML IV PRN ×2 (08:20)
[2017-07-10] MEDS ORDERED: magnesium Cl slow-release 64mg tablet PO PRN (08:20)
[2017-07-10] MEDS ORDERED: magnesium 4gm in 100ml NS 100 ML IV PRN (08:20)
[2017-07-10] MEDS ORDERED: magnesium 2GM in 50ml NS 50 ML IV PRN (08:20)
[2017-07-10] MEDS ORDERED: potassium Cl 20 mEq SR tablet PO PRN ×2 (08:20)
[2017-07-10] MEDS: calcium acetate 667mg (PhosLO) capsule PO SCH ×3 (08:26→18:55)
[2017-07-10] MEDS: calcitriol 0.25mcg capsule PO SCH (08:26)
[2017-07-10] MEDS: metoprolol tartrate 12.5mg (1/2 tablet) PO SCH ×2 (08:27→19:01)
[2017-07-10] MEDS: aspirin 325mg tablet, delayed-release (Ecotrin) PO SCH (08:27)
[2017-07-10] MEDS: pantoprazole 40mg Tablet.DR PO SCH (08:27)
[2017-07-10] MEDS: docusate sod 100mg capsule PO SCH ×2 (08:27→18:55)
[2017-07-10] MEDS: atorvastatin 10mg tablet PO SCH (08:28)
[2017-07-10] MEDS: amiodarone/D5 360MG/200ML BAG 200 ML IV SCH ×3 (09:49→21:58)
[2017-07-10] MEDS ORDERED: HEPARIN IP PRN (11:20)
[2017-07-10] MEDS ORDERED: DEXT IP PRN (11:20)
[2017-07-10] MEDS ORDERED: PERIT DIALYSIS IP PRN (11:20)
[2017-07-10] MEDS ORDERED: amiodarone 200mg tablet PO SCH (17:00)
[2017-07-10] MEDS: HYDROcodone/acetaminophen 10/325mg tab PO PRN (18:56)
[2017-07-11 03:00] VITALS: BP 110/78
[2017-07-11] MEDS: HYDROcodone/acetaminophen 10/325mg tab PO PRN ×3 (04:56→15:26)
[2017-07-11 06:00] VITALS: BP 121/78
[2017-07-11 06:35] LABS: BASOPHILS % (AUTO) 0 % (0-1); EOSINOPHILS # (AUTO) 0.6 X10'3 (0-0.9); EOSINOPHILS % (AUTO) 4.2 % (0-6); HEMATOCRIT 24.7 % (42.0-52.0); HEMOGLOBIN 8.3 g/dl (14.0-17.9); LYMPHOCYTES # (AUTO) 0.7 X10'3 (1.1-4.8); LYMPHOCYTES % (AUTO) 4.4 % (21-51); MEAN CORPUSCULAR HEMOGLOBIN 30.1 PG (27.0-31.0); MEAN CORPUSCULAR HGB CONC 33.5 % (33.0-36.5); MEAN PLATELET VOLUME 9.1 FL (7.4-10.4); MONOCYTES # (AUTO) 1.3 X10'3 (0-0.9); MONOCYTES % (AUTO) 8.2 % (2-12); NEUTROPHILS # (AUTO) 12.7 X10'3 (1.8-7.7); NEUTROPHILS % (AUTO) 83.2 % (42-75); PLATELET COUNT 208 X10'3 (140-440); RED BLOOD COUNT 2.75 X10'6 (4.70-6.10); RED CELL DISTRIBUTION WIDTH 18.3 % (11.5-14.5); WHITE BLOOD COUNT 15.3 X10'3 (4.5-11.0)
[2017-07-11 06:36] LABS: ALBUMIN 1.8 G/DL (3.4-5.0); ANION GAP 13 (8-16); BLOOD UREA NITROGEN 80 MG/DL (7-18); BUN/CREATININE RATIO 7.7 (5.4-32.0); CALCIUM 8.7 MG/DL (8.5-10.1); CHLORIDE 92 MMOL/L (99-107); CREATININE 10.44 MG/DL (0.60-1.10); GLUCOSE 137 MG/DL (70-104); POTASSIUM 5.4 MMOL/L (3.5-5.1); SODIUM 131 MMOL/L (135-145); TOTAL CARBON DIOXIDE 26.1 MMOL/L (24-32); eGFR 5 ML/MIN
[2017-07-11] MEDS: K and/or MAG REPLACEMENT MC SCH (07:53)
[2017-07-11] MEDS: calcitriol 0.25mcg capsule PO SCH (08:04)
[2017-07-11] MEDS: atorvastatin 10mg tablet PO SCH (08:04)
[2017-07-11] MEDS: aspirin 325mg tablet, delayed-release (Ecotrin) PO SCH (08:04)
[2017-07-11] MEDS: pantoprazole 40mg Tablet.DR PO SCH (08:05)
[2017-07-11] MEDS: metoprolol tartrate 12.5mg (1/2 tablet) PO SCH ×2 (08:05→18:59)
[2017-07-11] MEDS: amiodarone 200mg tablet PO SCH ×2 (08:05→18:59)
[2017-07-11] MEDS: docusate sod 100mg capsule PO SCH ×2 (08:07→19:00)
[2017-07-11] MEDS: calcium acetate 667mg (PhosLO) capsule PO SCH ×3 (08:07→18:59)
[2017-07-11] MEDS: ondansetron/PF 4mg/2ml inj IV PRN (09:35)
[2017-07-11] MEDS ORDERED: METO25TA6 PO (10:09)
[2017-07-11] MEDS ORDERED: AMIO200T57 PO (10:09)
[2017-07-11] MEDS ORDERED: COL100C PO (10:09)
[2017-07-11] MEDS ORDERED: HYDR-3972 PO (10:09)
[2017-07-11] MEDS ORDERED: APIX2.5T PO (10:18)
[2017-07-11 11:00] VITALS: BP 120/68
[2017-07-11 15:00] VITALS: BP 113/68
[2017-07-11] MEDS ORDERED: HEPARIN IP PRN ×2 (17:48)
[2017-07-11] MEDS ORDERED: DEXT IP PRN ×2 (17:48)
[2017-07-11] MEDS ORDERED: PERIT DIALYSIS IP PRN ×2 (17:48)
[2017-07-12] MEDS: HYDROcodone/acetaminophen 10/325mg tab PO PRN ×2 (01:22→08:17)
[2017-07-12 05:48] LABS: BASOPHILS % (AUTO) 0.1 % (0-1); EOSINOPHILS # (AUTO) 0.5 X10'3 (0-0.9); EOSINOPHILS % (AUTO) 4.3 % (0-6); HEMATOCRIT 26.9 % (42.0-52.0); LYMPHOCYTES # (AUTO) 0.9 X10'3 (1.1-4.8); LYMPHOCYTES % (AUTO) 7.9 % (21-51); MEAN CORPUSCULAR HEMOGLOBIN 30.1 PG (27.0-31.0); MEAN CORPUSCULAR HGB CONC 33.5 % (33.0-36.5); MEAN CORPUSCULAR VOLUME 89.8 FL (78-98); MEAN PLATELET VOLUME 8.9 FL (7.4-10.4); MONOCYTES % (AUTO) 8.3 % (2-12); NEUTROPHILS # (AUTO) 9.2 X10'3 (1.8-7.7); NEUTROPHILS % (AUTO) 79.4 % (42-75); PLATELET COUNT 227 X10'3 (140-440); RED CELL DISTRIBUTION WIDTH 18.2 % (11.5-14.5); WHITE BLOOD COUNT 11.6 X10'3 (4.5-11.0)
[2017-07-12 06:00] VITALS: BP 101/63
[2017-07-12 06:22] LABS: ALBUMIN 1.8 G/DL (3.4-5.0); ANION GAP 13 (8-16); BLOOD UREA NITROGEN 80 MG/DL (7-18); BUN/CREATININE RATIO 7.5 (5.4-32.0); CALCIUM 9.1 MG/DL (8.5-10.1); CHLORIDE 93 MMOL/L (99-107); CREATININE 10.65 MG/DL (0.60-1.10); GLUCOSE 146 MG/DL (70-104); POTASSIUM 5.4 MMOL/L (3.5-5.1); SODIUM 134 MMOL/L (135-145); TOTAL CARBON DIOXIDE 27.9 MMOL/L (24-32); eGFR 5 ML/MIN
[2017-07-12] MEDS: K and/or MAG REPLACEMENT MC SCH (08:00)
[2017-07-12] MEDS: docusate sod 100mg capsule PO SCH ×2 (08:07→20:06)
[2017-07-12] MEDS: amiodarone 200mg tablet PO SCH ×2 (08:07→20:05)
[2017-07-12] MEDS: metoprolol tartrate 12.5mg (1/2 tablet) PO SCH ×2 (08:08→20:05)
[2017-07-12] MEDS: aspirin 325mg tablet, delayed-release (Ecotrin) PO SCH (08:08)
[2017-07-12] MEDS: pantoprazole 40mg Tablet.DR PO SCH (08:09)
[2017-07-12] MEDS: calcitriol 0.25mcg capsule PO SCH (08:09)
[2017-07-12] MEDS: atorvastatin 10mg tablet PO SCH (08:10)
[2017-07-12] MEDS: calcium acetate 667mg (PhosLO) capsule PO SCH ×3 (08:11→17:43)
[2017-07-12] MEDS ORDERED: magnesium citrate 296ml oral solution PO ONE (09:35)
[2017-07-12 11:00] VITALS: BP 102/61
[2017-07-12] MEDS: ondansetron/PF 4mg/2ml inj IV PRN (12:43)
[2017-07-12] MEDS: acetaminophen 325mg tablet PO PRN ×2 (12:57→20:04)
[2017-07-12 15:00] VITALS: BP 124/67
[2017-07-12 19:00] VITALS: BP 124/67
[2017-07-12 23:00] VITALS: BP 95/59
[2017-07-13] MEDS: acetaminophen 325mg tablet PO PRN ×2 (02:39→09:57)
[2017-07-13 03:00] VITALS: BP 93/54
[2017-07-13 06:30] VITALS: BP 116/70
[2017-07-13 06:30] LABS: BASOPHILS % (AUTO) 0.2 % (0-1); EOSINOPHILS # (AUTO) 0.5 X10'3 (0-0.9); EOSINOPHILS % (AUTO) 4.2 % (0-6); HEMATOCRIT 24.8 % (42.0-52.0); HEMOGLOBIN 8.3 g/dl (14.0-17.9); LYMPHOCYTES # (AUTO) 0.9 X10'3 (1.1-4.8); LYMPHOCYTES % (AUTO) 8.1 % (21-51); MEAN CORPUSCULAR HEMOGLOBIN 30.2 PG (27.0-31.0); MEAN CORPUSCULAR HGB CONC 33.5 % (33.0-36.5); MEAN CORPUSCULAR VOLUME 90.3 FL (78-98); MEAN PLATELET VOLUME 8.9 FL (7.4-10.4); MONOCYTES # (AUTO) 1.1 X10'3 (0-0.9); MONOCYTES % (AUTO) 10.1 % (2-12); NEUTROPHILS # (AUTO) 8.6 X10'3 (1.8-7.7); NEUTROPHILS % (AUTO) 77.4 % (42-75); PLATELET COUNT 248 X10'3 (140-440); RED BLOOD COUNT 2.75 X10'6 (4.70-6.10); RED CELL DISTRIBUTION WIDTH 18.2 % (11.5-14.5); WHITE BLOOD COUNT 11.1 X10'3 (4.5-11.0)
[2017-07-13 07:05] LABS: ALBUMIN 1.8 G/DL (3.4-5.0); ANION GAP 12 (8-16); BLOOD UREA NITROGEN 78 MG/DL (7-18); BUN/CREATININE RATIO 7.2 (5.4-32.0); CALCIUM 9.1 MG/DL (8.5-10.1); CHLORIDE 95 MMOL/L (99-107); GLUCOSE 144 MG/DL (70-104); MAGNESIUM 3.1 MG/DL (1.5-2.4); POTASSIUM 5.1 MMOL/L (3.5-5.1); SODIUM 136 MMOL/L (135-145); TOTAL CARBON DIOXIDE 28.7 MMOL/L (24-32); eGFR 5 ML/MIN
[2017-07-13] MEDS ORDERED: aspirin 325mg tablet, delayed-release (Ecotrin) PO SCH (08:00)
[2017-07-13] MEDS: metoprolol tartrate 12.5mg (1/2 tablet) PO SCH (08:00)
[2017-07-13] MEDS: calcitriol 0.25mcg capsule PO SCH (09:37)
[2017-07-13] MEDS: calcium acetate 667mg (PhosLO) capsule PO SCH ×2 (09:37→13:03)
[2017-07-13] MEDS: docusate sod 100mg capsule PO SCH (09:38)
[2017-07-13] MEDS: amiodarone 200mg tablet PO SCH (09:38)
[2017-07-13] MEDS: atorvastatin 10mg tablet PO SCH (09:38)
[2017-07-13] MEDS: pantoprazole 40mg Tablet.DR PO SCH (09:56)
== END 2017-07-13 14:05 | disposition home or self-care (01) | DRG 235 ==
LOC: ICU 2S 13:19 → PCU 3S 07-10 16:48
PROVIDERS: ADMIT Thoracic Surgery (Cardiothoracic Vascular Surgery); ATTEND Thoracic Surgery (Cardiothoracic Vascular Surgery)
PROC: 06BP4ZZ Excision of Right Saphenous Vein, Percutaneous Endoscopic Approach (ICD-10-PCS; 2017-07-04)
PROC: 5A1221Z Performance of Cardiac Output, Continuous (ICD-10-PCS; 2017-07-04)
PROC: B24BZZ4 Ultrasonography of Heart with Aorta, Transesophageal (ICD-10-PCS; 2017-07-04)
PROC: 02L70ZK Occlusion of Left Atrial Appendage, Open Approach (ICD-10-PCS; 2017-07-04)
PROC: 0WHG33Z Insertion of Infusion Device into Peritoneal Cavity, Percutaneous Approach (ICD-10-PCS; 2017-07-04)
PROC: 3E1M39Z Irrigation of Peritoneal Cavity using Dialysate, Percutaneous Approach (ICD-10-PCS; 2017-07-04)
PROC: 05HM33Z Insertion of Infusion Device into Right Internal Jugular Vein, Percutaneous Approach (ICD-10-PCS; 2017-07-04)
PROC: B543ZZA Ultrasonography of Right Jugular Veins, Guidance (ICD-10-PCS; 2017-07-04)
PROC: 02HQ32Z Insertion of Monitoring Device into Right Pulmonary Artery, Percutaneous Approach (ICD-10-PCS; 2017-07-04)
PROC: 4A133B3 Monitoring of Arterial Pressure, Pulmonary, Percutaneous Approach (ICD-10-PCS; 2017-07-04)
PROC: 4A1239Z Monitoring of Cardiac Output, Percutaneous Approach (ICD-10-PCS; 2017-07-04)
PROC: 021209W Bypass Coronary Artery, Three Arteries from Aorta with Autologous Venous Tissue, Open Approach (ICD-10-PCS; principal; 2017-07-04 15:05)
PROC: 5A1D70Z Performance of Urinary Filtration, Intermittent, Less than 6 Hours Per Day (ICD-10-PCS; 2017-07-05)
PROC: 30243N1 Transfusion of Nonautologous Red Blood Cells into Central Vein, Percutaneous Approach (ICD-10-PCS; 2017-07-06)
PROC: 5A1D70Z Performance of Urinary Filtration, Intermittent, Less than 6 Hours Per Day (ICD-10-PCS; 2017-07-07)
PROC: 5A1D70Z Performance of Urinary Filtration, Intermittent, Less than 6 Hours Per Day (ICD-10-PCS; 2017-07-10)
DX: T82.858A Stenosis of other vascular prosthetic devices, implants and grafts, initial encounter (principal); N18.6 End stage renal disease; I12.0 Hypertensive chronic kidney disease with stage 5 chronic kidney disease or end stage renal disease; I48.0 Paroxysmal atrial fibrillation; E87.5 Hyperkalemia; I25.118 Atherosclerotic heart disease of native coronary artery with other forms of angina pectoris; E78.5 Hyperlipidemia, unspecified; I34.0 Nonrheumatic mitral (valve) insufficiency; K21.9 Gastro-esophageal reflux disease without esophagitis; Y83.8 Other surgical procedures as the cause of abnormal reaction of the patient, or of later complication, without mention of misadventure at the time of the procedure; I25.2 Old myocardial infarction; Z99.2 Dependence on renal dialysis; Z95.5 Presence of coronary angioplasty implant and graft; Z82.49 Family history of ischemic heart disease and other diseases of the circulatory system; Y92.89 Other specified places as the place of occurrence of the external cause
CPT/HCPCS: 0232T; 93306; 93312; 93325; Z7506; Z7508; 36415; 36600; 71045; 80048; 80053; 82330; 82435; 82800; 82803; 82947; 82948; 83036; 83735; 84100; 84132; 84295; 85018; 85025; 85027; 85347; 85610; 85730; 86885; 86900; 86901; 86920; 87070; 90947; 93005; 93880; 93971; 94002; 94003; 94010; 94668; 94760; 97110; 97116; 97162; 97530; A6213; A6255; A6257; A6258; A6402; A6449; A7000; A7048; C1713; C1751; G0257; J0282; J0690; J0885; J1644; J1720; J1815; J2001; J2060; J2150; J2250; J2270; J2370; J2405; J2440; J2720; J3370; J3480; J3490; J7030; J7120; P9016; P9045; P9047

== ENCOUNTER 2017-07-16 13:35 | Inpatient (IN) | payer OTHER ==
[~2017-07-16] VITALS: Ht 175.3 cm; Wt 99.1 kg
[~2017-07-16 13:35] MED LIST changes: +AMIO200T57 PO; +CINA30TA2; +COL100C PO; -DILT120C51 PO; +HYDR-3972 PO; -LABE100T PO; -LIDOcaine 2% (20 mg/ml) 5ml cardiac syringe ONE; -MAGNESIUM SULFATE 4 MEQ/ML (1gm/2ml) injection ONE; +METO25TA6 PO; -albumin (human) 25% 100 ML IV solution IV ONE; -aminocaproic acid 250 MG/1 ML inj. ONE; -calcium chloride 100 MG/1 ML inj IV ONE; -heparin 1,000 units/ml 10ml inj ONE; -heparin 10,000 units/1 ML INJ ONE; -papaverine 30 mg/ml 2ml inj. ONE; -phenylephrine 10mg/ml inj IV ONE; -potassium Cl 2 mEq/ml inj IV ONE; -sodium bicarbonate (8.4%) 1 mEq/ml syringe ONE
[2017-07-16 14:51] LABS: BASOPHILS % (AUTO) 0.1 % (0-1); EOSINOPHILS # (AUTO) 0.5 X10'3 (0-0.9); EOSINOPHILS % (AUTO) 2.5 % (0-6); HEMATOCRIT 25.8 % (42.0-52.0); HEMOGLOBIN 8.8 g/dl (14.0-17.9); LYMPHOCYTES # (AUTO) 0.9 X10'3 (1.1-4.8); LYMPHOCYTES % (AUTO) 4.1 % (21-51); MEAN CORPUSCULAR HEMOGLOBIN 30.2 PG (27.0-31.0); MEAN CORPUSCULAR VOLUME 88.8 FL (78-98); MEAN PLATELET VOLUME 8.6 FL (7.4-10.4); MONOCYTES # (AUTO) 0.8 X10'3 (0-0.9); MONOCYTES % (AUTO) 3.8 % (2-12); NEUTROPHILS % (AUTO) 89.5 % (42-75); PLATELET COUNT 388 X10'3 (140-440); RED BLOOD COUNT 2.91 X10'6 (4.70-6.10); RED CELL DISTRIBUTION WIDTH 18.5 % (11.5-14.5); WHITE BLOOD COUNT 21.2 X10'3 (4.5-11.0)
[2017-07-16 14:59] LABS: INR 1.1 INR; PROTHROMBIN TIME 11.6 SECONDS (9.0-12.0)
[2017-07-16 15:06] LABS: ALANINE AMINOTRANSFERASE 20 U/L (12-78); ALBUMIN 2.2 G/DL (3.4-5.0); ALBUMIN/GLOBULIN RATIO 0.5 (1.1-1.5); ALKALINE PHOSPHATASE 127 IU/L (46-116); ANION GAP 15 (8-16); ASPARTATE AMINO TRANSFERASE 29 U/L (10-37); BILIRUBIN,TOTAL 0.4 MG/DL (0.1-1.0); BLOOD UREA NITROGEN 90 MG/DL (7-18); BUN/CREATININE RATIO 7.7 (5.4-32.0); CALCIUM 9.1 MG/DL (8.5-10.1); CHLORIDE 92 MMOL/L (99-107); GLUCOSE 129 MG/DL (70-104); LIPASE 271 U/L (73-393); POTASSIUM 5.3 MMOL/L (3.5-5.1); SODIUM 136 MMOL/L (135-145); TOTAL CARBON DIOXIDE 29.4 MMOL/L (24-32); TOTAL PROTEIN 6.6 G/DL (6.4-8.2); eGFR 4 ML/MIN
[2017-07-16 16:02] LABS: ANISOCYTOSIS 2+; PLATELET ESTIMATE NORMAL
[2017-07-16 16:04] LABS: STOMATOCYTES 1+; TARGET CELLS 1+
[2017-07-16] MEDS ORDERED: lactulose 20gm/30ml cup PO ONE ×2 (16:30→18:50)
[2017-07-16] MEDS ORDERED: bisacodyl 10mg suppository rectal RC STA ×2 (16:30→20:03)
[2017-07-16 18:16] LABS: EOSINOPHILS,BODY FLUID 3 %; LYMPHOCYTES,BODY FLUID 89 %; MONOCYTES,BODY FLUID 3 %; NEUTROPHILS,BODY FLUID 5 %
[2017-07-16 18:17] LABS: BF MESOTHELIAL CELLS FEW; BF RBC COUNT 180 /CU MM; BF WBC COUNT 100 /CU MM (0-1000); BFAPPEAR HAZY; BFCOLOR STRAW; BFVOLUME 5 ML
[2017-07-16] MEDS ORDERED: normal saline 1000ML IV soln IVB ONE (18:45)
[2017-07-16] MEDS ORDERED: DEXT IP PRN (19:23)
[2017-07-16] MEDS ORDERED: HEPARIN IP PRN (19:23)
[2017-07-16] MEDS ORDERED: PERIT DIALYSIS IP PRN (19:23)
[2017-07-16] MEDS ORDERED: bisacodyl 5mg tablet.DR PO STA (20:03)
[2017-07-16] MEDS ORDERED: proCHLORperazine 10 MG/2 ml inj IV PRN (20:30)
[2017-07-16] MEDS: pantoprazole 40 MG vial IV SCH (20:46)
[2017-07-16 21:38] LABS: ALANINE AMINOTRANSFERASE 17 U/L (12-78); ALBUMIN 1.9 G/DL (3.4-5.0); ALBUMIN/GLOBULIN RATIO 0.5 (1.1-1.5); ALKALINE PHOSPHATASE 108 IU/L (46-116); ASPARTATE AMINO TRANSFERASE 27 U/L (10-37); BILIRUBIN,DIRECT 0.1 MG/DL (0-0.3); BILIRUBIN,TOTAL 0.3 MG/DL (0.1-1.0); TOTAL PROTEIN 5.8 G/DL (6.4-8.2)
[2017-07-16 21:45] LABS: MAGNESIUM 5.6 MG/DL (1.5-2.4)
[2017-07-16 23:10] VITALS: BP 115/58
[2017-07-16] MEDS: atorvastatin 10mg tablet PO SCH (23:19)
[2017-07-16] MEDS: sevelamer carbonate 800mg tablet PO SCH (23:19)
[2017-07-17] VITALS (7 sets, daily range): BP systolic 84–118; BP diastolic 47–72
[2017-07-17 06:39] LABS: BASOPHILS % (AUTO) 0.1 % (0-1); EOSINOPHILS # (AUTO) 0.4 X10'3 (0-0.9); EOSINOPHILS % (AUTO) 2.1 % (0-6); HEMATOCRIT 22.1 % (42.0-52.0); HEMOGLOBIN 7.5 g/dl (14.0-17.9); LYMPHOCYTES # (AUTO) 0.9 X10'3 (1.1-4.8); LYMPHOCYTES % (AUTO) 4.7 % (21-51); MEAN CORPUSCULAR HEMOGLOBIN 29.8 PG (27.0-31.0); MEAN CORPUSCULAR HGB CONC 33.9 % (33.0-36.5); MEAN CORPUSCULAR VOLUME 87.8 FL (78-98); MEAN PLATELET VOLUME 8.6 FL (7.4-10.4); MONOCYTES # (AUTO) 0.7 X10'3 (0-0.9); MONOCYTES % (AUTO) 3.7 % (2-12); NEUTROPHILS # (AUTO) 16.4 X10'3 (1.8-7.7); NEUTROPHILS % (AUTO) 89.4 % (42-75); PLATELET COUNT 340 X10'3 (140-440); RED BLOOD COUNT 2.52 X10'6 (4.70-6.10); RED CELL DISTRIBUTION WIDTH 18.3 % (11.5-14.5); WHITE BLOOD COUNT 18.3 X10'3 (4.5-11.0)
[2017-07-17 06:48] LABS: INR 1.1 INR; PARTIAL THROMBOPLASTIN TIME 35 SECONDS (22-32); PROTHROMBIN TIME 11.8 SECONDS (9.0-12.0)
[2017-07-17 07:06] LABS: ALANINE AMINOTRANSFERASE 20 U/L (12-78); ALBUMIN/GLOBULIN RATIO 0.5 (1.1-1.5); ALKALINE PHOSPHATASE 103 IU/L (46-116); ANION GAP 15 (8-16); ASPARTATE AMINO TRANSFERASE 30 U/L (10-37); BILIRUBIN,TOTAL 0.3 MG/DL (0.1-1.0); BLOOD UREA NITROGEN 91 MG/DL (7-18); BUN/CREATININE RATIO 7.8 (5.4-32.0); CALCIUM 8.4 MG/DL (8.5-10.1); CHLORIDE 95 MMOL/L (99-107); CREATININE 11.64 MG/DL (0.60-1.10); GLUCOSE 138 MG/DL (70-104); POTASSIUM 5.2 MMOL/L (3.5-5.1); SODIUM 137 MMOL/L (135-145); TOTAL CARBON DIOXIDE 27.5 MMOL/L (24-32); TOTAL PROTEIN 5.8 G/DL (6.4-8.2); eGFR 4 ML/MIN
[2017-07-17 08:05] LABS: MAGNESIUM 5.3 MG/DL (1.5-2.4)
[2017-07-17] MEDS: calcitriol 0.25mcg capsule PO SCH (08:31)
[2017-07-17] MEDS: apixaban 2.5mg tablet PO SCH ×2 (08:31→20:03)
[2017-07-17] MEDS: sodium bicarbonate 650mg tablet PO SCH ×2 (08:31→08:35)
[2017-07-17] MEDS: aspirin 81mg tab.chew PO SCH (08:31)
[2017-07-17] MEDS: amiodarone 200mg tablet PO SCH ×2 (08:31→20:03)
[2017-07-17] MEDS: sevelamer carbonate 800mg tablet PO SCH ×3 (08:32→18:49)
[2017-07-17] MEDS: pantoprazole 40 MG vial IV SCH (11:22)
[2017-07-17] MEDS: atorvastatin 10mg tablet PO SCH (20:03)
[2017-07-18] VITALS (13 sets, daily range): BP systolic 92–133; BP diastolic 55–76
[2017-07-18] MEDS ORDERED: vancomycin/NS 1 GM ADD-VANTAGE 250 ML IV ONE (00:30)
[2017-07-18] MEDS ORDERED: cefTAZidime inj. 1 GM in normal saline 100ml IV soln 100 ML IV ONE (01:35)
[2017-07-18] MEDS ORDERED: ceftazidime 1000mg in D5W 50ml 50 ML IV ONE (02:25)
[2017-07-18] MEDS ORDERED: vancomycin inj 1,250 MG in normal saline 250ml IV soln 250 ML IV PRN (06:05)
[2017-07-18 07:38] LABS: BASOPHILS % (AUTO) 0.3 % (0-1); EOSINOPHILS # (AUTO) 0.4 X10'3 (0-0.9); EOSINOPHILS % (AUTO) 3.7 % (0-6); LYMPHOCYTES # (AUTO) 1.1 X10'3 (1.1-4.8); MEAN CORPUSCULAR HEMOGLOBIN 29.6 PG (27.0-31.0); MEAN CORPUSCULAR HGB CONC 33.2 % (33.0-36.5); MEAN CORPUSCULAR VOLUME 89.1 FL (78-98); MEAN PLATELET VOLUME 8.2 FL (7.4-10.4); MONOCYTES # (AUTO) 0.7 X10'3 (0-0.9); MONOCYTES % (AUTO) 6.1 % (2-12); NEUTROPHILS # (AUTO) 9.6 X10'3 (1.8-7.7); NEUTROPHILS % (AUTO) 80.9 % (42-75); PLATELET COUNT 343 X10'3 (140-440); RED BLOOD COUNT 2.35 X10'6 (4.70-6.10); RED CELL DISTRIBUTION WIDTH 18.5 % (11.5-14.5); WHITE BLOOD COUNT 11.8 X10'3 (4.5-11.0)
[2017-07-18 07:48] LABS: INR 1.2 INR; PARTIAL THROMBOPLASTIN TIME 38 SECONDS (22-32)
[2017-07-18 07:49] LABS: HEMATOCRIT 20.9 % (42.0-52.0); HEMOGLOBIN 6.9 g/dl (14.0-17.9)
[2017-07-18 07:58] LABS: ALANINE AMINOTRANSFERASE 23 U/L (12-78); ALBUMIN 1.9 G/DL (3.4-5.0); ALBUMIN/GLOBULIN RATIO 0.5 (1.1-1.5); ALKALINE PHOSPHATASE 95 IU/L (46-116); ANION GAP 13 (8-16); ASPARTATE AMINO TRANSFERASE 30 U/L (10-37); BILIRUBIN,TOTAL 0.3 MG/DL (0.1-1.0); BLOOD UREA NITROGEN 84 MG/DL (7-18); BUN/CREATININE RATIO 7.3 (5.4-32.0); CALCIUM 8.1 MG/DL (8.5-10.1); CHLORIDE 95 MMOL/L (99-107); CREATININE 11.54 MG/DL (0.60-1.10); GLUCOSE 122 MG/DL (70-104); POTASSIUM 4.5 MMOL/L (3.5-5.1); SODIUM 136 MMOL/L (135-145); TOTAL CARBON DIOXIDE 28.3 MMOL/L (24-32); TOTAL PROTEIN 5.6 G/DL (6.4-8.2); eGFR 4 ML/MIN
[2017-07-18 08:12] LABS: MAGNESIUM 5.1 MG/DL (1.5-2.4)
[2017-07-18] MEDS: sevelamer carbonate 800mg tablet PO SCH ×3 (08:22→20:16)
[2017-07-18] MEDS: aspirin 81mg tab.chew PO SCH (08:41)
[2017-07-18] MEDS: amiodarone 200mg tablet PO SCH ×2 (08:41→20:21)
[2017-07-18] MEDS: sodium bicarbonate 650mg tablet PO SCH ×2 (08:41→20:00)
[2017-07-18] MEDS: calcitriol 0.25mcg capsule PO SCH (08:41)
[2017-07-18] MEDS: apixaban 2.5mg tablet PO SCH ×2 (08:41→20:22)
[2017-07-18] MEDS: pantoprazole 40 MG vial IV SCH (08:41)
[2017-07-18] MEDS ORDERED: SEVE800T8 PO (12:08)
[2017-07-18] MEDS ORDERED: sevelamer carbonate 800mg tablet PO SCH (17:37)
[2017-07-18] MEDS: lactobacillus rhamnosus 10,000 MMU CELLS/CAPSULE PO SCH (20:21)
[2017-07-18] MEDS: atorvastatin 10mg tablet PO SCH (20:21)
[2017-07-19] MEDS ORDERED: NORMAL SALINE IV SCH (02:00)
[2017-07-19] MEDS ORDERED: CEFTAZIDIME IV SCH (02:00)
[2017-07-19] MEDS ORDERED: VANCOMYCIN LEVEL IV SCH (03:00)
[2017-07-19 05:23] LABS: BASOPHILS % (AUTO) 0.3 % (0-1); EOSINOPHILS # (AUTO) 0.4 X10'3 (0-0.9); EOSINOPHILS % (AUTO) 4.1 % (0-6); HEMATOCRIT 26.8 % (42.0-52.0); HEMOGLOBIN 9.2 g/dl (14.0-17.9); LYMPHOCYTES # (AUTO) 0.9 X10'3 (1.1-4.8); LYMPHOCYTES % (AUTO) 9.1 % (21-51); MEAN CORPUSCULAR HEMOGLOBIN 29.7 PG (27.0-31.0); MEAN CORPUSCULAR HGB CONC 34.4 % (33.0-36.5); MEAN CORPUSCULAR VOLUME 86.4 FL (78-98); MEAN PLATELET VOLUME 8.6 FL (7.4-10.4); MONOCYTES # (AUTO) 0.7 X10'3 (0-0.9); MONOCYTES % (AUTO) 7.1 % (2-12); NEUTROPHILS # (AUTO) 8.2 X10'3 (1.8-7.7); NEUTROPHILS % (AUTO) 79.4 % (42-75); PLATELET COUNT 305 X10'3 (140-440); RED CELL DISTRIBUTION WIDTH 17.4 % (11.5-14.5); WHITE BLOOD COUNT 10.4 X10'3 (4.5-11.0)
[2017-07-19 05:55] LABS: INR 1.1 INR; PARTIAL THROMBOPLASTIN TIME 35 SECONDS (22-32); PROTHROMBIN TIME 11.4 SECONDS (9.0-12.0)
[2017-07-19 06:00] VITALS: BP 132/78
[2017-07-19 06:32] LABS: ALANINE AMINOTRANSFERASE 28 U/L (12-78); ALBUMIN 1.9 G/DL (3.4-5.0); ALBUMIN/GLOBULIN RATIO 0.5 (1.1-1.5); ALKALINE PHOSPHATASE 117 IU/L (46-116); ANION GAP 14 (8-16); ASPARTATE AMINO TRANSFERASE 34 U/L (10-37); BILIRUBIN,TOTAL 0.4 MG/DL (0.1-1.0); BLOOD UREA NITROGEN 85 MG/DL (7-18); BUN/CREATININE RATIO 7.1 (5.4-32.0); CALCIUM 8.1 MG/DL (8.5-10.1); CHLORIDE 93 MMOL/L (99-107); CREATININE 12.03 MG/DL (0.60-1.10); GLUCOSE 111 MG/DL (70-104); PHOSPHORUS 5.6 MG/DL (2.3-4.5); POTASSIUM 4.4 MMOL/L (3.5-5.1); SODIUM 133 MMOL/L (135-145); TOTAL PROTEIN 5.8 G/DL (6.4-8.2); VANCOMYCIN,RANDOM 20.7 UG/ML; eGFR 4 ML/MIN
[2017-07-19 06:36] LABS: MAGNESIUM 4.6 MG/DL (1.5-2.4)
[2017-07-19] MEDS ORDERED: acetaminophen 325mg tablet PO ONE (07:15)
[2017-07-19] MEDS: sodium bicarbonate 650mg tablet PO SCH (08:00)
[2017-07-19] MEDS: apixaban 2.5mg tablet PO SCH (08:07)
[2017-07-19] MEDS: calcitriol 0.25mcg capsule PO SCH (08:07)
[2017-07-19] MEDS: amiodarone 200mg tablet PO SCH (08:07)
[2017-07-19] MEDS: aspirin 81mg tab.chew PO SCH (08:08)
[2017-07-19] MEDS: pantoprazole 40 MG vial IV SCH (08:08)
[2017-07-19] MEDS: lactobacillus rhamnosus 10,000 MMU CELLS/CAPSULE PO SCH (08:08)
[2017-07-19] MEDS: sevelamer carbonate 800mg tablet PO SCH (08:14)
[2017-07-19 10:00] VITALS: BP 114/66
== END 2017-07-19 12:08 | disposition home or self-care (01) | DRG 314 ==
LOC: ER 13:35 → ED HOLD 20:26 → ORTHO 4S 22:50
PROVIDERS: ATTEND Internal Medicine Critical Care Medicine
PROC: BW211ZZ Computerized Tomography (CT Scan) of Abdomen and Pelvis using Low Osmolar Contrast (ICD-10-PCS; 2017-07-16)
PROC: 3E1M39Z Irrigation of Peritoneal Cavity using Dialysate, Percutaneous Approach (ICD-10-PCS; 2017-07-16)
PROC: 3E1M39Z Irrigation of Peritoneal Cavity using Dialysate, Percutaneous Approach (ICD-10-PCS; 2017-07-17)
PROC: 30233N1 Transfusion of Nonautologous Red Blood Cells into Peripheral Vein, Percutaneous Approach (ICD-10-PCS; principal; 2017-07-18)
PROC: 3E1M39Z Irrigation of Peritoneal Cavity using Dialysate, Percutaneous Approach (ICD-10-PCS; 2017-07-18)
PROC: 3E1M39Z Irrigation of Peritoneal Cavity using Dialysate, Percutaneous Approach (ICD-10-PCS; 2017-07-19)
DX: I95.9 Hypotension, unspecified (principal); N18.6 End stage renal disease; I50.9 Heart failure, unspecified; R65.10 Systemic inflammatory response syndrome (SIRS) of non-infectious origin without acute organ dysfunction; Z99.2 Dependence on renal dialysis; D64.9 Anemia, unspecified; I25.10 Atherosclerotic heart disease of native coronary artery without angina pectoris; K57.30 Diverticulosis of large intestine without perforation or abscess without bleeding; K59.01 Slow transit constipation; Z95.1 Presence of aortocoronary bypass graft; Z79.82 Long term (current) use of aspirin; Z79.899 Other long term (current) drug therapy; Z79.01 Long term (current) use of anticoagulants
CPT/HCPCS: 36415; 71045; 74176; 80053; 80076; 80202; 82948; 83605; 83690; 83735; 83880; 84100; 84145; 84439; 84443; 85025; 85610; 85730; 86885; 86900; 86901; 86920; 87015; 87040; 87070; 87075; 89051; 90935; 97116; 97161; 97530; 99285; A6402; C9113; J0713; J1644; J3370; J7030; P9016

== ENCOUNTER 2018-05-26 10:13 | Outpatient (CLI) | payer OTHER ==
[~2018-05-26 10:13] MED LIST changes: +AMIO200T40 PO; -AMIO200T57 PO
== END 2018-05-26 23:59 | disposition home or self-care (01) ==
LOC: DCI 10:13
DX: D64.9 Anemia, unspecified (principal); Z53.9 Procedure and treatment not carried out, unspecified reason